=== PATIENT | male | born 1940 | race Caucasian/White ===

== ENCOUNTER 2021-06-09 15:41 | Emergency (ER) | payer MEDICARE, SELFPAY ==
[2021-06-09 15:42] VITALS: BP 157/85; PULSE 81; RESP 18; TEMP 36.5; O2SAT 95; BMI 30.1
--- NOTE | 2021-06-09 15:54 | EX.ED.DYSGE1 ---
HPI History of Present Illness Chief Complaint: Cold Sx Informant: patient Onset/Context/Timing Onset: Weeks Context: Gradual Onset Current Severity: Mild Maximum Severity: Mild Narrative Narrative: Patient presents with 3-week history of URI symptoms. He reports pressure across his forehead with sinus drainage, mild cough, wheezing. He denies fever or chills. He states he gets these symptoms yearly and usually gets better with a Z-Reji. He is currently here in [place] of town. His became ill while here and is being admitted to the hospital. PFSH PFS Home Medications azithromycin [Zithromax] See Rx Instructions .ROUTE .COMPLEX #6 tab 06/09/21 [Rx Last Taken Unknown] Allergy/AdvReac Type Severity Reaction Status Date / Time No Known Allergies Allergy Verified 06/09/21 15:45 ROS ROS ED Constitutional Constitutional ED: Denies chills or fever(s) Eyes Eyes: Denies change in vision ENT ENT ED: Reports other Details: Sinus pressure and congestion ; Denies sore throat Cardiovascular Cardiovascular: Denies chest pain Respiratory/Chest Respiratory/Chest: Reports cough and other Details: Occasional wheezing ; Denies dyspnea Gastrointestinal Gastrointestinal: Denies abdominal pain, diarrhea, nausea or vomiting Genitourinary Genitourinary ED: Denies dysuria Musculoskeletal Musculoskeletal: Denies back pain Integumentary Denies rash Neurologic Neurologic: Denies headache(s) or weakness Allergic/Immunologic Allergic/Immunologic ED: Denies urticaria EXAM Physical Exam Const Vital Signs: 06/09/21 15:42 Temperature 97.7 F L Temperature Source Temporal Pulse Rate 81 Respiratory Rate 18 Blood Pressure 157/85 H Blood Pressure Mean 109 Pulse Ox 95 Oxygen Delivery Method Room Air Positive well nourished and well developed General Appearance ED: well developed HEENT Reports moist mucous membranes HEENT Narrative: No focal sinus tenderness to palpation of the frontal or maxillary sinuses. Eyes PERRL and EOMs intact bilaterally Neck supple Chest Wall inspection of chest normal and palpation of chest normal Resp normal respiratory effort and clear to auscultation bilaterally Cardio regular rate and regular rhythm GI non-tender Palpation: soft Extremity normal to inspection Neuro oriented x3 Sensorium / Orientation: alert Psych mental status grossly normal Skin no rashes or lesions noted [facility] Treatment and Re-Evaluation Comments:: With patient having ongoing symptoms for 3 weeks will be covered with a Z-Reji. Return instructions provided. Discharge Plan Triage Chief Complaint: Cold Sx ED Provider: Irais Myers Dx/Rx/DC Orders Clinical Impression: Sinusitis Instructions: ED Sinusitis (Antibiotic Treatment) Prescriptions: New azithromycin [Zithromax] 250 mg tablet See Rx Instructions .ROUTE .COMPLEX Qty: 6 RF: 0 Primary Care Provider: NOT,DEFINED Referrals: NOT,DEFINED [Primary Care Provider] - Disposition Disposition: Home, Self Care
== END 2021-06-09 16:06 | disposition home or self-care (01) ==
LOC: ED 16:04
PROVIDERS: Emergency Provider Emergency Medicine; Visit Provider Emergency Medicine
DX: J32.9 Chronic sinusitis, unspecified (principal)
CPT/HCPCS: 99282